=== PATIENT | male | born 1950 | race Caucasian/White ===

== ENCOUNTER 2019-08-15 18:19 | Inpatient (IN) | payer MEDICARE, BC ==
[2019-08-15] MEDS ORDERED: MAGNESIUM SULFATE/D5W 2 GM/200 ML RTUPB IV ONE (18:31)
[2019-08-15] MEDS: MAGNESIUM SULFATE/D5W 1 GM/100 ML RTUPB IV SCH ×2 (18:32→18:52)
[2019-08-15] MEDS ORDERED: IPRATROPIUM/ALBUTEROL 0.5-2.5 MG/3 ML AMPUL NEB ONE (18:37)
[2019-08-15] MEDS ORDERED: MORPHINE SULFATE 10 MG/ML INJ IV ONE (18:41)
[2019-08-15] MEDS ORDERED: ONDANSETRON HCL INJ/PF 4 MG/2 ML SDV IV ONE (18:41)
--- NOTE | 2019-08-15 18:43 | ER Document Report ---
ED General - General Mode of Arrival: Medic Information source: Patient, Emergency Med Personnel, [facility] Records TRAVEL OUTSIDE OF THE [place] IN LAST 30 DAYS: No - HPI Onset: Other Onset/Duration: Gradual, Persistent, Worse Quality of pain: Burning Severity: Moderate Associated symptoms: Chest pain, Leg swelling, Shortness of breath Exacerbated by: Movement, Walking, Coughing Relieved by: Denies Similar symptoms previously: Yes Recently seen / treated by doctor: Yes <ABELARDO PETERS - Last Filed: 08/15/19 23:25> <XAVIER CHAO IV - Last Filed: 08/15/19 23:32> - General Chief Complaint: Shortness Of Breath Stated Complaint: SHORTNESS OF BREATH Primary Care Provider: CHELLY MILES MD [NO LOCAL MD] - Follow up as needed Notes: 69-year-old male with COPD, congestive heart failure, lung cancer with previous right total lobectomy presents via EMS with shortness of breath. Patient r eports that he is chronically short of breath but over the last 3 days it has progressively worsened. He is on home oxygen normally and has required increases per EMS. Per EMS patient was not hypoxic upon their arrival but did have increased work of breathing. Patient did receive breathing treatments and Solu-Medrol prior to arrival. (ABELARDO PETERS) - Related Data Allergies/Adverse Reactions: No Known Allergies Allergy (Unverified 06/22/15 18:06) Past Medical History - General Information source: Patient, Emergency Med Personnel, [facility] Records - Social History Smoking Status: Former Smoker Frequency of alcohol use: None Drug Abuse: None Lives with: Family Family History: Reviewed & Not Pertinent - Past Medical History Cardiac Medical History: Reports: Hx Congestive Heart Failure, Hx Hypertension Pulmonary Medical History: Reports: Hx COPD - Immunizations Hx Pneumococcal Vaccination: 04/09/15 <ABELARDO PETERS - Last Filed: 08/15/19 23:25> Review of Systems <ABELARDO PETERS - Last Filed: 08/15/19 23:25> - Review of Systems Notes: REVIEW OF SYSTEMS: CONSTITUTIONAL : Denies fever, chills, or sweats. Denies recent illness. Denies weight loss, recent hospitalizations. EENT: Denies visual changes, eye pain. Denies sore throat, oral lesions, difficulty swallowing. CARDIOVASCULAR: + chest pain. Denies palpitations. Denies lower extremity edema. RESPIRATORY: + cough. + shortness of breath, wheezing. GASTROINTESTINAL: Denies abdominal pain or distention. Denies nausea, vomiting, or diarrhea. Denies blood in vomitus, stools, or per rectum. Denies black, tarry stools. Denies constipation. GENITOURINARY: Denies difficulty urinating, painful urination, frequency, blood in urine, testicular pain or penile discharge. MUSCULOSKELETAL: Denies back or neck pain or stiffness. Denies joint pain or swelling. SKIN: Denies rash, lesions or sores. HEMATOLOGIC : Denies easy bruising or bleeding. LYMPHATIC: Denies swollen glands. NEUROLOGICAL: Denies confusion or altered mental status. Denies loss of consciousness. Denies dizziness or lightheadedness. Denies headache. Denies weakness or paralysis. Denies problems difficulty with ambulation, slurred speech. Denies sensory loss, numbness, or tingling. Denies seizures. PSYCHIATRIC: Denies anxiety or stress. Denies depression, suicidal ideation, or (ABELRADO PETERS) Physical Exam <ABELARDO PETERS - Last Filed: 08/15/19 23:25> - Vital signs Vitals: Pulse Ox 98 08/15/19 18:20 - Notes Notes: PHYSICAL EXAMINATION: GENERAL: Ill-appearing, moderate distress HEAD: Atraumatic, normocephalic. EYES: Pupils equal round and reactive to light, extraocular movements intact, sclera anicteric, conjunctiva are normal. ENT: Nares patent, oropharynx clear without exudates. Moist mucous membranes. NECK: Normal range of motion, supple without lymphadenopathy LUNGS: Increased work of breathing, accessory muscle use, tachypnea, absent right-sided breath sounds HEART: Regular rate and rhythm without murmurs ABDOMEN: Soft, nontender, nondistended abdomen. No guarding, no rebound. No masses appreciated. Musculoskeletal: Normal range of motion, 1+ pitting edema. No cyanosis. NEUROLOGICAL: Cranial nerves grossly intact. Normal speech, normal gait. Normal sensory, motor exams PSYCH: Normal mood, normal affect. SKIN: Warm, Dry, normal turgor, no rashes or lesions noted. (ABELARDO PETERS) Course - Laboratory Result Diagrams: 08/15/19 18:37 08/15/19 20:33 - Diagnostic Test Radiology reviewed: Image reviewed, Reports reviewed - EKG Interpretation by Me EKG shows normal: Sinus rhythm Rate: Tachycardia <ABELARDO PETERS E - Last Filed: 08/15/19 23:25> - Laboratory Result Diagrams: 08/15/19 18:37 08/15/19 20:33 - Consults dr. kp cassidy, hospitalist Time consulted: 23:25 Consulted provider: will come to ER <XAVIER CHAO IV - Last Filed: 08/15/19 23:32> - Re-evaluation Re-evalutation: Laboratory 08/15/19 08/15/19 08/15/19 18:37 18:37 18:37 WBC 25.4 H RBC 4.14 L Hgb 13.6 Hct 41.7 MCV 101 H MCH 32.8 MCHC 32.6 RDW 15.1 H Plt Count 432 Lymph % (Auto) Not Reportable Josephine % (Auto) Not Reportable Eos % (Auto) Not Reportable Baso % (Auto) Not Reportable Absolute Neuts (auto) Not Reportable Absolute Lymphs (auto) Not Reportable Absolute Monos (auto) Not Reportable Absolute Eos (auto) Not Reportable Absolute Basos (auto) Not Reportable Total Counted 100 Seg Neutrophils % Not Reportable Seg Neuts % (Manual) 88 H Lymphocytes % (Manual) 4 L Monocytes % (Manual) 8 Eosinophils % (Manual) 0 Basophils % (Manual) 0 Abs Neuts (Manual) 22.4 H Abs Lymphs (Manual) 1.0 Abs Monocytes (Manual) 2.0 H Absolute Eos (Manual) 0.0 Abs Basophils (Manual) 0.0 Large Platelets PRESENT Platelet Comment ADEQUATE Anisocytosis SLIGHT Macrocytosis 1+ Carbonic Acid HCO3/H2CO3 Ratio ABG pH ABG pCO2 ABG pO2 ABG HCO3 ABG Total CO2 ABG O2 Saturation ABG Base Excess FiO2 Sodium Cancelled Potassium Cancelled Chloride Cancelled Carbon Dioxide Cancelled Anion Gap Cancelled BUN Cancelled Creatinine Cancelled Est GFR ( Amer) Cancelled Est GFR (Non-Af Amer) Cancelled Est GFR (MDRD) Non-Af Cancelled Glucose Cancelled Lactic Acid Calcium Cancelled Total Bilirubin Cancelled Direct Bilirubin Cancelled Neonat Total Bilirubin Cancelled Neonat Direct Bilirubin Cancelled Neonat Indirect Bili Cancelled AST Cancelled ALT Cancelled Alkaline Phosphatase Cancelled Creatine Kinase Cancelled CK-MB (CK-2) Cancelled Troponin I Cancelled NT-Pro-B Natriuret Pep Cancelled Total Protein Cancelled Albumin Cancelled EGFR Cancelled 08/15/19 08/15/19 08/15/19 18:37 19:18 19:18 WBC RBC Hgb Hct MCV MCH MCHC RDW Plt Count Lymph % (Auto) Josephine % (Auto) Eos % (Auto) Baso % (Auto) Absolute Neuts (auto) Absolute Lymphs (auto) Absolute Monos (auto) Absolute Eos (auto) Absolute Basos (auto) Total Counted Seg Neutrophils % Seg Neuts % (Manual) Lymphocytes % (Manual) Monocytes % (Manual) Eosinophils % (Manual) Basophils % (Manual) Abs Neuts (Manual) Abs Lymphs (Manual) Abs Monocytes (Manual) Absolute Eos (Manual) Abs Basophils (Manual) Large Platelets Platelet Comment Anisocytosis Macrocytosis Carbonic Acid 2.22 H HCO3/H2CO3 Ratio 13:1 ABG pH 7.23 L ABG pCO2 73.6 H* ABG pO2 86.1 ABG HCO3 30.3 H ABG Total CO2 32.5 H ABG O2 Saturation 94.4 ABG Base Excess 0.9 FiO2 50% Sodium Cancelled Potassium Cancelled Chloride Cancelled Carbon Dioxide Cancelled Anion Gap Cancelled BUN Cancelled Creatinine Cancelled Est GFR ( Amer) Cancelled Est GFR (Non-Af Amer) Cancelled Est GFR (MDRD) Non-Af Cancelled Glucose Cancelled Lactic Acid Calcium Cancelled Total Bilirubin Cancelled Direct Bilirubin Cancelled Neonat Total Bilirubin Cancelled Neonat Direct Bilirubin Cancelled Neonat Indirect Bili Cancelled AST Cancelled ALT Cancelled Alkaline Phosphatase Cancelled Creatine Kinase Cancelled CK-MB (CK-2) Cancelled Troponin I Cancelled NT-Pro-B Natriuret Pep Cancelled Total Protein Cancelled Albumin Cancelled EGFR Cancelled 08/15/19 08/15/19 08/15/19 20:00 20:33 20:33 WBC RBC Hgb Hct MCV MCH MCHC RDW Plt Count Lymph % (Auto) Josephine % (Auto) Eos % (Auto) Baso % (Auto) Absolute Neuts (auto) Absolute Lymphs (auto) Absolute Monos (auto) Absolute Eos (auto) Absolute Basos (auto) Total Counted Seg Neutrophils % Seg Neuts % (Manual) Lymphocytes % (Manual) Monocytes % (Manual) Eosinophils % (Manual) Basophils % (Manual) Abs Neuts (Manual) Abs Lymphs (Manual) Abs Monocytes (Manual) Absolute Eos (Manual) Abs Basophils (Manual) Large Platelets Platelet Comment Anisocytosis Macrocytosis Carbonic Acid HCO3/H2CO3 Ratio ABG pH ABG pCO2 ABG pO2 ABG HCO3 ABG Total CO2 ABG O2 Saturation ABG Base Excess FiO2 Sodium 137.0 Potassium 5.0 Chloride 93 L Carbon Dioxide 30 Anion Gap 14 BUN 15 Creatinine 0.56 Est GFR ( Amer) > 60 Est GFR (Non-Af Amer) Est GFR (MDRD) Non-Af > 60 Glucose 165 H Lactic Acid 1.4 Calcium 8.8 Total Bilirubin 0.6 Direct Bilirubin 0.6 H Neonat Total Bilirubin Not Reportable Neonat Direct Bilirubin Not Reportable Neonat Indirect Bili Not Reportable AST 23 ALT 15 Alkaline Phosphatase 129 H Creatine Kinase 44 L CK-MB (CK-2) 3.54 Troponin I < 0.012 NT-Pro-B Natriuret Pep 1010 H Total Protein 7.2 Albumin 4.2 EGFR 08/15/19 22:48 WBC RBC Hgb Hct MCV MCH MCHC RDW Plt Count Lymph % (Auto) Josephine % (Auto) Eos % (Auto) Baso % (Auto) Absolute Neuts (auto) Absolute Lymphs (auto) Absolute Monos (auto) Absolute Eos (auto) Absolute Basos (auto) Total Counted Seg Neutrophils % Seg Neuts % (Manual) Lymphocytes % (Manual) Monocytes % (Manual) Eosinophils % (Manual) Basophils % (Manual) Abs Neuts (Manual) Abs Lymphs (Manual) Abs Monocytes (Manual) Absolute Eos (Manual) Abs Basophils (Manual) Large Platelets Platelet Comment Anisocytosis Macrocytosis Carbonic Acid 3.82 H HCO3/H2CO3 Ratio 8:1 ABG pH 7.03 L* ABG pCO2 126.8 H* ABG pO2 93.0 ABG HCO3 32.8 H ABG Total CO2 36.7 H ABG O2 Saturation 91.9 L ABG Base Excess -1.6 FiO2 50% Sodium Potassium Chloride Carbon Dioxide Anion Gap BUN Creatinine Est GFR ( Amer) Est GFR (Non-Af Amer) Est GFR (MDRD) Non-Af Glucose Lactic Acid Calcium Total Bilirubin Direct Bilirubin Neonat Total Bilirubin Neonat Direct Bilirubin Neonat Indirect Bili AST ALT Alkaline Phosphatase Creatine Kinase CK-MB (CK-2) Troponin I NT-Pro-B Natriuret Pep Total Protein Albumin EGFR Chest X-Ray 08/15/19 18:30 IMPRESSION: Increased left basilar airspace -interstitial opacities. Chest/Abdomen CTA 08/15/19 18:59 IMPRESSION: 1. No evidence of pulmonary embolus. 2. Findings consistent with a mild left basilar pneumonia, consider aspiration. There is also mild evidence of a likely infectious bronchiolitis or possibly changes of aspiration in the left lung as well. 3. Borderline sized prevascular lymph node that could be reactive but metastatic disease is not excluded. Correlation with any old imaging or short-term follow-up would be useful. Temp Pulse Resp BP Pulse Ox 97.7 F 14 119/81 92 08/15/19 21:30 08/15/19 23:00 08/15/19 22:31 08/15/19 23:00 08/15/19 18:46 Patient has informed us that he does not want to be resuscitated or intubated. 08/15/19 19:16 ED Course History: 69-year-old male with COPD, right lobectomy, history of lung cancer presents with shortness of breath for 3 days Patient evaluated. Vital signs were reviewed. Patient is tachypneic, tachycardic. Previous medical records and nursing notes reviewed. Patient in moderate distress Exam Findings: Increased work of breathing, accessory muscle use. Lab Findings: ABG does show CO2 retention EKG: Significant artifact due to patient being in extremis. EKG does show sinus tachycardia at a rate of 136. Patient Interventions/Monitor: DuoNeb's, Solu-Medrol, magnesium, morphine, Zofran, BiPAP Revaluation: Resting more comfortably, awaiting labs, CTA Disposition:Patient signed out to Dr Chao with CTA and labs pending. Patient will need admission due to pneumonia,respiratory distress, CO2 retention.Because of cancer history CTA obtained to assure no PE present. 08/15/19 23:22 (ABELARDO PETERS) 08/15/19 23:30 Patient is becoming more somnolent. Patient is a DNR, DNI. Repeat ABG shows that the patient is becoming more hypercarbic. This MD notified the nurse to try to get in contact with the patient's relatives and informed them that the patient is seriously ill. (XAVIER CHAO IV) - Vital Signs Vital signs: Temp Pulse Resp BP Pulse Ox 97.7 F 14 119/72 91 L 08/15/19 21:30 08/15/19 23:20 08/15/19 23:01 08/15/19 23:20 - Laboratory Laboratory results interpreted by me: 08/15/19 08/15/19 08/15/19 18:37 18:37 20:33 WBC 25.4 H RBC 4.14 L MCV 101 H RDW 15.1 H Seg Neuts % (Manual) 88 H Lymphocytes % (Manual) 4 L Abs Neuts (Manual) 22.4 H Abs Monocytes (Manual) 2.0 H Carbonic Acid 2.22 H ABG pH 7.23 L ABG pCO2 73.6 H* ABG HCO3 30.3 H ABG Total CO2 32.5 H ABG O2 Saturation Chloride 93 L Glucose 165 H Direct Bilirubin 0.6 H Alkaline Phosphatase 129 H Creatine Kinase 44 L NT-Pro-B Natriuret Pep 08/15/19 08/15/19 20:33 22:48 WBC RBC MCV RDW Seg Neuts % (Manual) Lymphocytes % (Manual) Abs Neuts (Manual) Abs Monocytes (Manual) Carbonic Acid 3.82 H ABG pH 7.03 L* ABG pCO2 126.8 H* ABG HCO3 32.8 H ABG Total CO2 36.7 H ABG O2 Saturation 91.9 L Chloride Glucose Direct Bilirubin Alkaline Phosphatase Creatine Kinase NT-Pro-B Natriuret Pep 1010 H - Consults dr. kp cassidy, hospitalist Reason for consultation: 08/15/19 23:31 pneumonia, respiratory distress, hypercarbia (XAVIER CHAO IV) Critical Care Note - Critical Care Note Total time excluding time spent on procedures (mins): 50 - minutes of critical care time spent in direct contact evaluating and reevaluating the patient, treating symptoms, reviewing labs and studies and speaking with family and consultants excluding any procedures <ABELARDO PETERS - Last Filed: 08/15/19 23:25> Discharge <ABELARDO PETERS - Last Filed: 08/15/19 23:25> - Discharge Admitting Provider: Carlos (Hospitalist) Unit Admitted: Medical Floor <XAVIER CHAO IV - Last Filed: 08/15/19 23:32> - Discharge Clinical Impression: Respiratory distress Leukocytosis Qualifiers: Leukocytosis type: unspecified Qualified Code(s): D72.829 - Elevated white blood cell count, unspecified Pneumonia Qualifiers: Pneumonia type: due to unspecified organism Laterality: left Lung location: unspecified part of lung Qualified Code(s): J18.9 - Pneumonia, unspecified [facility] Condition: Critical Disposition: ADMITTED INPATIENT Referrals: CHELLY MILES MD [NO LOCAL MD] - Follow up as needed
[2019-08-15 18:53] LABS: HEMATOCRIT 41.7 % (37.9-51.0); HEMOGLOBIN 13.6 g/dL (13.5-17.0); MEAN CORPUSCULAR HEMOGLOBIN 32.8 pg (27.0-33.4); MEAN CORPUSCULAR HGB CONC 32.6 g/dL (32.0-36.0); MEAN CORPUSCULAR VOLUME 101 fl (80-97); PLATELET COUNT 432 10^3/uL (150-450); RED BLOOD COUNT 4.14 10^6/uL (4.35-5.55); RED CELL DISTRIBUTION WIDTH 15.1 % (11.5-14.0); WHITE BLOOD COUNT 25.4 10^3/uL (4.0-10.5)
[2019-08-15 19:02] LABS: ARTERIAL BLOOD BASE EXCESS 0.9 mmol/L; ARTERIAL BLOOD H2CO3 2.22 mmol/L (1.05-1.35); ARTERIAL BLOOD HCO3 30.3 mmol/L (20-24); ARTERIAL BLOOD O2 SATURATION 94.4 % (94-98); ARTERIAL BLOOD PH 7.23 (7.35-7.45); ARTERIAL BLOOD PO2 86.1 mmHg (80-100); ARTERIAL BLOOD TOTAL CO2 32.5 mmol/L (23-27)
[2019-08-15 19:05] LABS: ARTERIAL BLOOD FIO2 50%; ARTERIAL BLOOD PCO2 73.6 mmHg (35-45)
--- NOTE | 2019-08-15 19:07 | RADIOLOGY REPORT (SQ) ---
EXAM DESCRIPTION: CHEST SINGLE VIEW COMPLETED DATE/TIME: 08/15/2019 6:46 pm REASON FOR STUDY: sob COMPARISON: 06/22/2015 TECHNIQUE: Single frontal radiographic view of the chest acquired. NUMBER OF VIEWS: One view. LIMITATIONS: None. FINDINGS: LUNGS AND PLEURA: No pneumothorax. Similar opacification -postsurgical changes in the rig ht hemithorax. Increased left basilar airspace -interstitial opacities. No significant Pleural effu edgar. MEDIASTINUM AND HILAR STRUCTURES: Stable. HEART AND VASCULAR STRUCTURES: Stable. BONES: No acute findings. HARDWARE: Surgical clips in the right hilus-mediastinum. OTHER: No other significant finding. IMPRESSION: Increased left basilar airspace -interstitial opacities. TECHNICAL DOCUMENTATION: JOB ID: [id number] 2010 [employer]- All Rights Reserved Reading location - IP/workstation name: [email or web address]
[2019-08-15 19:16] LABS: BASOPHILS % (MANUAL) 0 % (0-2); EOSINOPHILS % (MANUAL) 0 % (0-6); LYMPHOCYTES % (MANUAL) 4 % (13-45); MONOCYTES % (MANUAL) 8 % (3-13); SEGMENTED NEUTROPHILS % (MAN) 88 % (42-78); TOTAL CELLS COUNTED 100
[2019-08-15 19:18] LABS: ANISOCYTOSIS SLIGHT; PLATELET COMMENT ADEQUATE; PLATELET LARGE PRESENT
[2019-08-15] MEDS ORDERED: CEFTRIAXONE 1 GM/D5W RTU 1 GM/50 ML RTUPB IV ONE (19:38)
[2019-08-15] MEDS ORDERED: DOXYCYCLINE HYCLATE 100 MG TABLET PO ONE (19:43)
[2019-08-15] MEDS ORDERED: NORMAL SALINE 500 ML IV ONE (19:55)
[2019-08-15 21:11] LABS: CREATINE KINASE MB 3.54 ng/mL (<4.55); NT PRO BNP 1010 pg/mL (<125)
[2019-08-15 21:13] LABS: TROPONIN I < 0.012 ng/mL
[2019-08-15 21:14] LABS: ALBUMIN 4.2 g/dL (3.5-5.0); ALKALINE PHOSPHATASE 129 U/L (38-126); ANION GAP 14 (5-19); ASPARTATE AMINO TRANSFERASE 23 U/L (17-59); BILIRUBIN,DIRECT 0.6 mg/dL (0.0-0.4); BILIRUBIN,TOTAL 0.6 mg/dL (0.2-1.3); BLOOD UREA NITROGEN 15 mg/dL (7-20); CALCIUM 8.8 mg/dL (8.4-10.2); CARBON DIOXIDE 30 mmol/L (22-30); CHLORIDE 93 mmol/L (98-107); CREATINE KINASE 44 U/L (55-170); GLUCOSE 165 mg/dL (75-110); TOTAL PROTEIN 7.2 g/dL (6.3-8.2)
--- NOTE | 2019-08-15 21:31 | EKG REPORT ---
SEVERITY:- ABNORMAL ECG - SINUS TACHYCARDIA ATRIAL PREMATURE COMPLEXES LEFT VENTRICULAR HYPERTROPHY ST DEPRESSION, CONSIDER ISCHEMIA, ANT-LAT LDS : Confirmed by: Parag Li MD 15-Aug-2019 21:30:48
--- NOTE | 2019-08-15 22:08 | RADIOLOGY REPORT (SQ) ---
CT angiogram chest with contrast on 08/15/2019 at 9:34 PM CLINICAL INDICATION: Shortness of breath, history of cancer TECHNIQUE: Multiple axial images are obtained throughout the chest following the administration of IV contrast. Computer generated 3D reconstructions/MIPS were performed. This exam was performed according to our departmental dose-optimization program, which includes automated exposure control, adjustment of the mA and/or kV according to patient size and/or use of iterative reconstruction technique. Total DLP is 566.87 mGy*cm. COMPARISON: None FINDINGS: The patient is status post a right pneumonectomy. There is expected shift of the heart and mediastinum to the right. There is expected fluid filling the right hemithorax. There is no thoracic aortic aneurysm or dissection. There is diverticulosis in the upper abdomen. There is elevation of the right hemidiaphragm. Visualized upper abdomen is otherwise unremarkable. There is no left pleural effusion or pericardial effusion. There are no filling defects within the pulmonary arteries to suggest pulmonary embolus. Breathing motion limits some of the examination. There is left basilar airspace opacity consistent with pneumonia, consider aspiration. There are also patchy tree-in-bud nodular opacities in the left lung that may be related to an infectious bronchiolitis and/or aspiration. There is borderline in size left prevascular lymph node on axial image 50 measuring 1.4 x 1.3 cm. This could be reactive but metastatic adenopathy is not excluded. Correlation with any old imaging or short-term follow-up would be useful. No other thoracic adenopathy is noted. No acute bony abnormality is noted. IMPRESSION: 1. No evidence of pulmonary embolus. 2. Findings consistent with a mild left basilar pneumonia, consider aspiration. There is also mild evidence of a likely infectious bronchiolitis or possibly changes of aspiration in the left lung as well. 3. Borderline sized prevascular lymph node that could be reactive but metastatic disease is not excluded. Correlation with any old imaging or short-term follow-up would be useful.
[2019-08-15 22:56] LABS: ARTERIAL BLOOD BASE EXCESS -1.6 mmol/L; ARTERIAL BLOOD H2CO3 3.82 mmol/L (1.05-1.35); ARTERIAL BLOOD HCO3 32.8 mmol/L (20-24); ARTERIAL BLOOD O2 SATURATION 91.9 % (94-98); ARTERIAL BLOOD TOTAL CO2 36.7 mmol/L (23-27)
[2019-08-15 22:58] LABS: ARTERIAL BLOOD FIO2 50%
[2019-08-15 23:04] LABS: ARTERIAL BLOOD PCO2 126.8 mmHg (35-45); ARTERIAL BLOOD PH 7.03 (7.35-7.45)
--- NOTE | 2019-08-16 00:27 | PDOC H&P ---
History of Present Illness Admission Date/PCP: 08/15/19 23:38 Patient complains of: Difficulty breathing History of Present Illness: ARMIDA العلي JR is a 69 year old male with a history of lung cancer status post right pneumonectomy. He also has a history of COPD and congestive heart failure. He had called rescue for increasing shortness of breath. Upon arrival the patient was on his baseline oxygen exhibiting increased work of breathing. He did get a nebulizer treatment and IV steroids onsite. He was transferred to the emergency department. He was placed on BiPAP. Chest x-ray and CT scan revealed a left lower lobe pneumonia as well as the fluid-filled right side of the chest status post pneumonectomy. He had an elevated white blood cell count of 25,000. Chemistries were relatively unremarkable. Glucose was 165. The patient was referred to the hospital service for pneumonia. He does have a history of lung cancer and is currently DNR. Past Medical History Cardiac Medical History: Reports: Congestive Heart Failure, Hypertension Pulmonary Medical History: Reports: Chronic Obstructive Pulmonary Disease (COPD) Past Surgical History Past Surgical History: Reports: Other - Right pneumonectomy Social History Information Source: [facility] Records Lives with: Family Smoking Status: Former Smoker Electronic Cigarette use?: No Frequency of Alcohol Use: None Hx Recreational Drug Use: No Drugs: None Hx Prescription Drug Abuse: No - Advance Directive Resuscitation Status: Do Not Resuscitate Family History Family History: Reviewed & Not Pertinent Parental Family History Reviewed: No - Unable to obtain from the patient due to tachypnea on the BiPAP Children Family History Reviewed: No Sibling(s) Family History Reviewed.: No Medication/Allergy Home Medications: Budesonide/Formoterol Fumarate [Symbicort HFA 160-4.5 mcg Inhaler 6 gm] 2 puff IH Q12 06/22/15 Ipratropium/Albuterol Sulfate [Combivent Respimat 4 gm Mdi] 1 puff IH Q4 PRN 06/22/15 Albuterol Sulfate [Albuterol Sulfate 2.5mg/3 mL] 2.5 mg IH Q4HP PRN #30 ml Amoxicillin/Potassium Clav [Augmentin 875-125 Tablet] 1 each PO Q12 #20 tablet 06/26/15 Prednisone 20 mg PO ASDIR PRN #8 tablet 06/26/15 Tiotropium [place] [Spiriva Handihaler 18 mcg/dose (30 Dose)] 1 cap IH DAILY #30 capsule 06/26/15 Allergies/Adverse Reactions: No Known Allergies Allergy (Unverified 06/22/15 18:06) Review of Systems ROS unobtainable: Due to mental status - Patient with confusion and PCO2 126 Physical Exam Vital Signs: Temp Pulse Resp BP Pulse Ox 97.7 F 12 93/73 L 92 08/15/19 21:30 08/15/19 23:40 08/15/19 23:31 08/15/19 23:40 Intake & Output 08/14/19 08/15/19 08/16/19 05:59 06:59 06:59 Intake Total 750 Balance 750 Weight 68.039 kg General appearance: PRESENT: mild distress, thin, other - Actually woke up and was trying to get out of bed. ABSENT: cooperative Head exam: PRESENT: atraumatic, normocephalic Eye exam: PRESENT: conjunctiva pale. ABSENT: scleral icterus Ear exam: PRESENT: normal external ear exam. ABSENT: bleeding, drainage Mouth exam: PRESENT: other - BiPAP mask in place Neck exam: ABSENT: carotid bruit, JVD, lymphadenopathy Respiratory exam: PRESENT: prolonged expiratory phas, rhonchi - Very large on the right, symmetrical, tachypnea. ABSENT: rales, wheezes Cardiovascular exam: PRESENT: RRR, +S1, +S2. ABSENT: systolic murmur GI/Abdominal exam: PRESENT: diminished bowel sounds, soft. ABSENT: distended, guarding, tenderness Rectal exam: PRESENT: deferred Gentrourinary exam: ABSENT: indwelling catheter Extremities exam: PRESENT: full ROM. ABSENT: pedal edema Musculoskeletal exam: PRESENT: normal inspection, other - Decreased muscle mass Neurological exam: PRESENT: alert, awake, oriented to person Psychiatric exam: PRESENT: agitated, unusual affect Focused psych exam: PRESENT: restlessness Skin exam: PRESENT: dry - Skin in fact is very dry, warm. ABSENT: rash Results Laboratory Results: 08/15/19 18:37 08/15/19 20:33 08/15/19 08/15/19 08/15/19 18:37 18:37 18:37 WBC 25.4 H RBC 4.14 L Hgb 13.6 Hct 41.7 MCV 101 H MCH 32.8 MCHC 32.6 RDW 15.1 H Plt Count 432 Seg Neutrophils % Not Reportable Carbonic Acid 2.22 H HCO3/H2CO3 Ratio 13:1 ABG pH 7.23 L ABG pCO2 73.6 H* ABG pO2 86.1 ABG HCO3 30.3 H ABG O2 Saturation 94.4 ABG Base Excess 0.9 FiO2 50% Sodium Cancelled Potassium Cancelled Chloride Cancelled Carbon Dioxide Cancelled Anion Gap Cancelled BUN Cancelled Creatinine Cancelled Est GFR ( Amer) Cancelled Est GFR (Non-Af Amer) Cancelled Glucose Cancelled Lactic Acid Calcium Cancelled Total Bilirubin Cancelled AST Cancelled Alkaline Phosphatase Cancelled Total Protein Cancelled Albumin Cancelled 08/15/19 08/15/19 08/15/19 19:18 20:00 20:33 WBC RBC Hgb Hct MCV MCH MCHC RDW Plt Count Seg Neutrophils % Carbonic Acid HCO3/H2CO3 Ratio ABG pH ABG pCO2 ABG pO2 ABG HCO3 ABG O2 Saturation ABG Base Excess FiO2 Sodium Cancelled 137.0 Potassium Cancelled 5.0 Chloride Cancelled 93 L Carbon Dioxide Cancelled 30 Anion Gap Cancelled 14 BUN Cancelled 15 Creatinine Cancelled 0.56 Est GFR ( Amer) Cancelled > 60 Est GFR (Non-Af Amer) Cancelled Glucose Cancelled 165 H Lactic Acid 1.4 Calcium Cancelled 8.8 Total Bilirubin Cancelled 0.6 AST Cancelled 23 Alkaline Phosphatase Cancelled 129 H Total Protein Cancelled 7.2 Albumin Cancelled 4.2 08/15/19 22:48 WBC RBC Hgb Hct MCV MCH MCHC RDW Plt Count Seg Neutrophils % Carbonic Acid 3.82 H HCO3/H2CO3 Ratio 8:1 ABG pH 7.03 L* ABG pCO2 126.8 H* ABG pO2 93.0 ABG HCO3 32.8 H ABG O2 Saturation 91.9 L ABG Base Excess -1.6 FiO2 50% Sodium Potassium Chloride Carbon Dioxide Anion Gap BUN Creatinine Est GFR ( Amer) Est GFR (Non-Af Amer) Glucose Lactic Acid Calcium Total Bilirubin AST Alkaline Phosphatase Total Protein Albumin 08/15/19 08/15/19 08/15/19 18:37 18:37 19:18 Creatine Kinase Cancelled CK-MB (CK-2) Cancelled Cancelled Troponin I Cancelled Cancelled NT-Pro-B Natriuret Pep Cancelled Cancelled 0308/15/19 08/15/19 19:18 20:33 20:33 Creatine Kinase Cancelled 44 L CK-MB (CK-2) 3.54 Troponin I < 0.012 NT-Pro-B Natriuret Pep 1010 H Impressions: Chest X-Ray 08/15/19 18:30 IMPRESSION: Increased left basilar airspace -interstitial opacities. Chest/Abdomen CTA 08/15/19 18:59 IMPRESSION: 1. No evidence of pulmonary embolus. 2. Findings consistent with a mild left basilar pneumonia, consider aspiration. There is also mild evidence of a likely infectious bronchiolitis or possibly changes of aspiration in the left lung as well. 3. Borderline sized prevascular lymph node that could be reactive but metastatic disease is not excluded. Correlation with any old imaging or short-term follow-up would be useful. Assessment and Plan - Diagnosis (1) Pneumonia Qualifiers: Pneumonia type: due to unspecified organism Laterality: left Lung location: unspecified part of lung Qualified Code(s): J18.9 - Pneumonia, unspecified organism Is this a current diagnosis for this admission?: Yes Plan: 08/16/2019 The patient has a high white blood cell count and imaging suggestive of left lower lobe pneumonia. The patient was placed on dual antibiotic therapy. This will cover most of the common pathogens including Streptococcus. It will also cover some atypical bacteria. (2) Leukocytosis Qualifiers: Leukocytosis type: unspecified Qualified Code(s): D72.829 - Elevated white blood cell count, unspecified Is this a current diagnosis for this admission?: Yes Plan: 08/16/2019 White blood cell count elevated due to pneumonia. We will continue to monitor the white blood cell count. I expect it will improve with antibiotic therapy. (3) Acute on chronic respiratory failure with hypoxia and hypercapnia Is this a current diagnosis for this admission?: Yes Plan: 08/16/2019 The patient requires BiPAP because of the severe hypercapnia. Nursing reports that he is beginning to awaken and communicates now that he has been on BiPAP. We will continue the BiPAP and eventually wean him from BiPAP. He is on oxygen at home and so we will try and taper to his baseline oxygen requirements (4) Metabolic encephalopathy Is this a current diagnosis for this admission?: Yes Plan: 08/16/2019 Secondary to the hypercapnia and infection. (5) Hyperglycemia Is this a current diagnosis for this admission?: Yes Plan: 08/16/2019 Possibly related to the intravenous Solu-Medrol given in the field. Continue to monitor serum chemistries. If the glucose remains elevated consider Accu-Cheks and sliding scale insulin coverage. (6) H/O pneumonectomy Is this a current diagnosis for this admission?: Yes Plan: 08/16/2019 The patient did have lung cancer. He had the pneumonectomy. He only has 1 working long and he has a left lower lobe pneumonia. CT scan of the chest showed possible adenopathy consistent with metastatic disease. (7) Sepsis Qualifiers: Sepsis type: sepsis due to unspecified organism Severe sepsis acute organ dysfunction type: acute respiratory failure Acute respiratory failure type: with hypercapnia Severe sepsis shock status: without septic shock Is this a current diagnosis for this admission?: Yes Plan: 08/16/2019 The patient does meet sepsis criteria due to the hypoxemia with increased work of breathing as well as the encephalopathy. He was never hypotensive and is not thrombocytopenic. No acute kidney injury or acute liver injury are present. The sepsis was due to pneumonia that was present on admission. The patient experienced respiratory failure because of the pneumonia. He was encephalopathic because of the hypercapnia. This should resolve with antibiotics, nebulizer treatments and supportive care - Time Time Spent with patient: 35 or more minutes Medications reviewed and adjusted accordingly: Yes Anticipated discharge: Other - Consider hospice. Palliative care order placed. 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
[2019-08-16] MEDS ORDERED: IPRATROPIUM/ALBUTEROL 0.5-2.5 MG/3 ML AMPUL NEB PRN (00:30)
[2019-08-16] MEDS ORDERED: ACETAMINOPHEN 325 MG TABLET PO PRN (00:30)
[2019-08-16] MEDS ORDERED: MORPHINE SULFATE 10 MG/ML INJ IV PRN (00:39)
[2019-08-16] MEDS: IPRATROPIUM/ALBUTEROL 0.5-2.5 MG/3 ML AMPUL NEB SCH ×4 (01:50→20:53)
[2019-08-16] MEDS: LORAZEPAM INJ 2 MG/1 ML VIAL IV PRN ×3 (05:51→23:35)
[2019-08-16] MEDS: HEPARIN SOD (PORCINE) 5,000 UNIT/ML 1 ML VIAL SUBCUT SCH ×3 (05:55→21:32)
[2019-08-16] MEDS: NORMAL SALINE 1000 ML 1,000 ML IV PRN ×2 (05:56→17:35)
[2019-08-16 06:41] LABS: HEMATOCRIT 36.4 % (37.9-51.0); HEMOGLOBIN 11.8 g/dL (13.5-17.0); MEAN CORPUSCULAR HEMOGLOBIN 32.9 pg (27.0-33.4); MEAN CORPUSCULAR HGB CONC 32.6 g/dL (32.0-36.0); MEAN CORPUSCULAR VOLUME 101 fl (80-97); PLATELET COUNT 379 10^3/uL (150-450); RED BLOOD COUNT 3.59 10^6/uL (4.35-5.55); RED CELL DISTRIBUTION WIDTH 15.3 % (11.5-14.0); WHITE BLOOD COUNT 20.3 10^3/uL (4.0-10.5)
[2019-08-16 07:07] LABS: ANION GAP 10 (5-19); BLOOD UREA NITROGEN 25 mg/dL (7-20); CALCIUM 8.8 mg/dL (8.4-10.2); CARBON DIOXIDE 32 mmol/L (22-30); CHLORIDE 96 mmol/L (98-107); GLUCOSE 142 mg/dL (75-110); POTASSIUM 5.5 mmol/L (3.6-5.0)
[2019-08-16 07:13] LABS: ARTERIAL BLOOD BASE EXCESS 0.6 mmol/L; ARTERIAL BLOOD H2CO3 3.98 mmol/L (1.05-1.35); ARTERIAL BLOOD HCO3 34.7 mmol/L (20-24); ARTERIAL BLOOD PO2 232.3 mmHg (80-100); ARTERIAL BLOOD TOTAL CO2 38.8 mmol/L (23-27)
[2019-08-16 07:31] LABS: ARTERIAL BLOOD PH 7.04 (7.35-7.45)
[2019-08-16 07:32] LABS: ARTERIAL BLOOD FIO2 50%; ARTERIAL BLOOD PCO2 132.3 mmHg (35-45)
[2019-08-16 07:54] LABS: ABSOLUTE LYMPHOCYTES# (MANUAL) 0.4 10^3/uL (0.5-4.7); ABSOLUTE MONOCYTES # (MANUAL) 0.4 10^3/uL (0.1-1.4); BAND NEUTROPHILS % (MANUAL) 1 % (3-5); BASOPHILS % (MANUAL) 1 % (0-2); EOSINOPHILS % (MANUAL) 0 % (0-6); LYMPHOCYTES % (MANUAL) 1 % (13-45); MONOCYTES % (MANUAL) 2 % (3-13); SEGMENTED NEUTROPHILS % (MAN) 94 % (42-78); TOTAL CELLS COUNTED 100
[2019-08-16 07:56] LABS: ANISOCYTOSIS SLIGHT; TOXIC GRANULATION SLIGHT
[2019-08-16] MEDS: BUDESONIDE NEB 0.5 MG/2 ML AMPUL NEB SCH ×2 (07:56→20:53)
[2019-08-16 07:57] LABS: PLATELET COMMENT ADEQUATE
[2019-08-16] MEDS: DOXYCYCLINE HYCLATE 100 MG in DEXTROSE 5%-WATER 250 ML IV SCH ×2 (09:56→23:06)
[2019-08-16] MEDS: FAMOTIDINE INJ/PF 20 MG/2 ML SDV IV SCH ×2 (09:56→23:05)
[2019-08-16] MEDS: MINERAL OIL/PETROLATUM,WHITE CREAM 114 GM TP SCH ×2 (09:59→17:18)
[2019-08-16] MEDS: GUAIFENESIN 600 MG TABLET.SA PO SCH ×2 (10:06→21:37)
[2019-08-16] MEDS ORDERED: INFLUENZA QUAD (6MOS+) 2019-20 VAC 0.5 ML SYR IM ONE (12:00)
[2019-08-16] MEDS ORDERED: CEFTRIAXONE 1 GM/D5W RTU 1 GM/50 ML RTUPB IV SCH (18:00)
--- NOTE | 2019-08-16 18:44 | PDOC PROGRESS REPORT ---
Subjective Progress Note for:: 08/16/19 Subjective:: Patient was admitted last night has been on BiPAP. A little like his CO2 was actually getting worse on BiPAP. Fortunately, however, as the day went on he began to get a little bit more responsive. At last report he was sitting up in bed which was a dramatic improvement over how he was doing this morning. When I saw him earlier he can at least open his eyes and nod his head a little bit, which was an improvement over last night. Reason For Visit: PNEUMONIA,LUNG CANCER Physical Exam Vital Signs: Temp Pulse Resp BP Pulse Ox 97.6 F 106 H 18 103/54 L 99 08/16/19 08:00 08/16/19 08:00 08/16/19 12:50 08/16/19 08:00 08/16/19 12:50 Pulse Oximeter Continuous Start: 08/16/19 00:31 Freq: RTQ4 Status: Active Protocol: Document 08/16/19 12:50 NSM (Rec: 08/16/19 13:15 NSM [id number]) Additional RT Notes Other Grazyna Luis RCP student Pulse Oximetry Assessment Oxygen Saturation (92-100) 99 Oxygen Delivery Method Bi-pap Fraction of Inspired Oxygen (FIO2) 50 Equipment Usage Equipment in Use Continuous SpO2 Machine # [id number] Intake & Output 08/15/19 08/16/19 08/17/19 06:59 06:59 06:59 Intake Total 750 1300 Balance 750 1300 Weight 55.8 kg 55.8 kg General appearance: PRESENT: disheveled, other - Moderate distress Respiratory exam: PRESENT: rhonchi, symmetrical, unlabored. ABSENT: accessory muscle use, chest wall tenderness, crackles, prolonged expiratory phas, retraction, tachypnea, wheezes Cardiovascular exam: PRESENT: RRR, +S1, +S2 Pulses: PRESENT: normal carotid pulses Vascular exam: PRESENT: normal capillary refill GI/Abdominal exam: PRESENT: hypoactive bowel sounds, soft. ABSENT: distended, guarding, rebound, tenderness Extremities exam: ABSENT: clubbing, pedal edema Musculoskeletal exam: PRESENT: normal inspection. ABSENT: deformity Neurological exam: PRESENT: altered - Arousable to verbal command, oriented to person Psychiatric exam: PRESENT: flat affect Skin exam: PRESENT: dry, warm Results Laboratory Results: 08/16/19 06:12 08/16/19 06:12 08/15/19 08/15/19 08/15/19 18:37 18:37 18:37 WBC 25.4 H RBC 4.14 L Hgb 13.6 Hct 41.7 MCV 101 H MCH 32.8 MCHC 32.6 RDW 15.1 H Plt Count 432 Seg Neutrophils % Not Reportable Carbonic Acid 2.22 H HCO3/H2CO3 Ratio 13:1 ABG pH 7.23 L ABG pCO2 73.6 H* ABG pO2 86.1 ABG HCO3 30.3 H ABG O2 Saturation 94.4 ABG Base Excess 0.9 FiO2 50% Sodium Cancelled Potassium Cancelled Chloride Cancelled Carbon Dioxide Cancelled Anion Gap Cancelled BUN Cancelled Creatinine Cancelled Est GFR ( Amer) Cancelled Est GFR (Non-Af Amer) Cancelled Glucose Cancelled Lactic Acid Calcium Cancelled Magnesium Total Bilirubin Cancelled AST Cancelled Alkaline Phosphatase Cancelled Total Protein Cancelled Albumin Cancelled 08/15/19 08/15/19 08/15/19 19:18 20:00 20:33 WBC RBC Hgb Hct MCV MCH MCHC RDW Plt Count Seg Neutrophils % Carbonic Acid HCO3/H2CO3 Ratio ABG pH ABG pCO2 ABG pO2 ABG HCO3 ABG O2 Saturation ABG Base Excess FiO2 Sodium Cancelled 137.0 Potassium Cancelled 5.0 Chloride Cancelled 93 L Carbon Dioxide Cancelled 30 Anion Gap Cancelled 14 BUN Cancelled 15 Creatinine Cancelled 0.56 Est GFR ( Amer) Cancelled > 60 Est GFR (Non-Af Amer) Cancelled Glucose Cancelled 165 H Lactic Acid 1.4 Calcium Cancelled 8.8 Magnesium Total Bilirubin Cancelled 0.6 AST Cancelled 23 Alkaline Phosphatase Cancelled 129 H Total Protein Cancelled 7.2 Albumin Cancelled 4.2 08/15/19 08/16/19 08/16/19 22:48 05:50 06:12 WBC 20.3 H RBC 3.59 L Hgb 11.8 L Hct 36.4 L MCV 101 H MCH 32.9 MCHC 32.6 RDW 15.3 H Plt Count 379 Seg Neutrophils % Not Reportable Carbonic Acid 3.82 H 3.98 H HCO3/H2CO3 Ratio 8:1 8:1 ABG pH 7.03 L* 7.04 L* ABG pCO2 126.8 H* 132.3 H* ABG pO2 93.0 232.3 H ABG HCO3 32.8 H 34.7 H ABG O2 Saturation 91.9 L 99.0 H ABG Base Excess -1.6 0.6 FiO2 50% 50% Sodium Potassium Chloride Carbon Dioxide Anion Gap BUN Creatinine Est GFR ( Amer) Est GFR (Non-Af Amer) Glucose Lactic Acid Calcium Magnesium Total Bilirubin AST Alkaline Phosphatase Total Protein Albumin 08/16/19 06:12 WBC RBC Hgb Hct MCV MCH MCHC RDW Plt Count Seg Neutrophils % Carbonic Acid HCO3/H2CO3 Ratio ABG pH ABG pCO2 ABG pO2 ABG HCO3 ABG O2 Saturation ABG Base Excess FiO2 Sodium 138.4 Potassium 5.5 H Chloride 96 L Carbon Dioxide 32 H Anion Gap 10 BUN 25 H Creatinine 0.87 Est GFR ( Amer) > 60 Est GFR (Non-Af Amer) Glucose 142 H Lactic Acid Calcium 8.8 Magnesium 3.2 H Total Bilirubin AST Alkaline Phosphatase Total Protein Albumin 08/15/19 08/15/19 08/15/19 18:37 18:37 19:18 Creatine Kinase Cancelled CK-MB (CK-2) Cancelled Cancelled Troponin I Cancelled Cancelled NT-Pro-B Natriuret Pep Cancelled Cancelled 08/15/19 08/15/19 08/15/19 19:18 20:33 20:33 Creatine Kinase Cancelled 44 L CK-MB (CK-2) 3.54 Troponin I < 0.012 NT-Pro-B Natriuret Pep 1010 H Impressions: Chest X-Ray 08/15/19 18:30 IMPRESSION: Increased left basilar airspace -interstitial opacities. Chest/Abdomen CTA 08/15/19 18:59 IMPRESSION: 1. No evidence of pulmonary embolus. 2. Findings consistent with a mild left basilar pneumonia, consider aspiration. There is also mild evidence of a likely infectious bronchiolitis or possibly changes of aspiration in the left lung as well. 3. Borderline sized prevascular lymph node that could be reactive but metastatic disease is not excluded. Correlation with any old imaging or short-term follow-up would be useful. Assessment and Plan - Diagnosis (1) Acute on chronic respiratory failure with hypoxia and hypercapnia Is this a current diagnosis for this admission?: Yes Plan: His CO2 was paradoxically worsening on BiPAP,, but he finally started to show signs of improvement as the day wore on. We will continue BiPAP and will reassess periodically to see if he can come off of it and start taking p.o. (2) Metabolic encephalopathy Is this a current diagnosis for this admission?: Yes Plan: Due to his respiratory acidosis. We will continue BiPAP. Does seem to be improving, but slowly. - Time Time Spent with patient: 15-24 minutes
[2019-08-16 22:18] LABS: APPEARANCE,URINE CLEAR; BILIRUBIN,URINE NEGATIVE (NEGATIVE); COLOR,URINE YELLOW; GLUCOSE, URINE NEGATIVE (NEGATIVE); KETONES,URINE 20 mg/dL (NEGATIVE); LEUKOCYTE ESTERASE,URINE NEGATIVE (NEGATIVE); NITRITE,URINE NEGATIVE (NEGATIVE); PROTEIN,URINE 30 mg/dL (NEGATIVE); UROBILINOGEN,URINE NEGATIVE mg/dL (<2.0)
[2019-08-17] MEDS: IPRATROPIUM/ALBUTEROL 0.5-2.5 MG/3 ML AMPUL NEB SCH ×2 (01:55→07:58)
[2019-08-17] MEDS: HEPARIN SOD (PORCINE) 5,000 UNIT/ML 1 ML VIAL SUBCUT SCH (05:56)
[2019-08-17 07:27] LABS: HEMATOCRIT 33.1 % (37.9-51.0); HEMOGLOBIN 10.8 g/dL (13.5-17.0); MEAN CORPUSCULAR HEMOGLOBIN 33.1 pg (27.0-33.4); MEAN CORPUSCULAR HGB CONC 32.5 g/dL (32.0-36.0); MEAN CORPUSCULAR VOLUME 102 fl (80-97); PLATELET COUNT 361 10^3/uL (150-450); RED BLOOD COUNT 3.25 10^6/uL (4.35-5.55); WHITE BLOOD COUNT 19.9 10^3/uL (4.0-10.5)
[2019-08-17 07:43] LABS: ANION GAP 6 (5-19); BLOOD UREA NITROGEN 35 mg/dL (7-20); CALCIUM 8.8 mg/dL (8.4-10.2); CARBON DIOXIDE 36 mmol/L (22-30); CHLORIDE 98 mmol/L (98-107); GLUCOSE 108 mg/dL (75-110); POTASSIUM 5.5 mmol/L (3.6-5.0)
[2019-08-17] MEDS: BUDESONIDE NEB 0.5 MG/2 ML AMPUL NEB SCH (07:58)
[2019-08-17 08:08] LABS: ABSOLUTE LYMPHOCYTES# (MANUAL) 0.6 10^3/uL (0.5-4.7); ABSOLUTE MONOCYTES # (MANUAL) 2.4 10^3/uL (0.1-1.4); BAND NEUTROPHILS % (MANUAL) 5 % (3-5); BASOPHILS % (MANUAL) 0 % (0-2); EOSINOPHILS % (MANUAL) 0 % (0-6); LYMPHOCYTES % (MANUAL) 3 % (13-45); MONOCYTES % (MANUAL) 12 % (3-13); SEGMENTED NEUTROPHILS % (MAN) 80 % (42-78); TOTAL CELLS COUNTED 100
[2019-08-17 08:10] LABS: ANISOCYTOSIS SLIGHT; PLATELET COMMENT ADEQUATE; TOXIC VACUOLATION PRESENT
[2019-08-17 09:33] VITALS: BP 142/85
[2019-08-17] MEDS: FAMOTIDINE INJ/PF 20 MG/2 ML SDV IV SCH (10:32)
[2019-08-17] MEDS: GUAIFENESIN 600 MG TABLET.SA PO SCH (10:32)
[2019-08-17] MEDS: DOXYCYCLINE HYCLATE 100 MG in DEXTROSE 5%-WATER 250 ML IV SCH (10:32)
[2019-08-17] MEDS: MINERAL OIL/PETROLATUM,WHITE CREAM 114 GM TP SCH (10:33)
[2019-08-17] MEDS ORDERED: MORPHINE SULFATE 10 MG/ML INJ IV PRN (11:59)
[2019-08-17] MEDS ORDERED: LORAZEPAM INJ 2 MG/1 ML VIAL IV PRN (11:59)
[2019-08-17] MEDS ORDERED: IPRATROPIUM/ALBUTEROL 0.5-2.5 MG/3 ML AMPUL NEB PRN (13:38)
--- NOTE | 2019-08-17 19:20 | Death Summary ---
Summary Date : 08/17/19 Time of :: 17:33 Autopsy: No Resuscitation Status: Comfort Measures Only - Final Diagnosis (1) Acute on chronic respiratory failure with hypoxia and hypercapnia Is this a current diagnosis for this admission?: Yes (2) Metabolic encephalopathy Is this a current diagnosis for this admission?: Yes Hospital Course:: He did not improve on BiPAP. He had one brief period yesterday evening where he woke up and was able to interact a little bit, but he continued to deteriorate and his PCO2 continued to remain substantially elevated. His family ultimately decided to make him comfort measures only. Comfort measures were instituted and he this afternoon at 1733 hrs.
== END 2019-08-17 19:00 | disposition left against medical advice (07) | DRG 871 ==
LOC: ER 18:19 → EH 23:38 → 4W 08-16 00:55
PROVIDERS: ADMIT Hospitalist; ATTEND Hospitalist
PROC: 5A09457 Assistance with Respiratory Ventilation, 24-96 Consecutive Hours, Continuous Positive Airway Pressure (ICD-10-PCS; principal; 2019-08-15)
DX: A41.9 Sepsis, unspecified organism (principal); J96.21 Acute and chronic respiratory failure with hypoxia; J18.9 Pneumonia, unspecified organism; G93.41 Metabolic encephalopathy; J96.22 Acute and chronic respiratory failure with hypercapnia; C34.91 Malignant neoplasm of unspecified part of right bronchus or lung; D72.829 Elevated white blood cell count, unspecified; R73.9 Hyperglycemia, unspecified; J44.9 Chronic obstructive pulmonary disease, unspecified; I11.0 Hypertensive heart disease with heart failure; I50.9 Heart failure, unspecified; Z66 Do not resuscitate; Z99.81 Dependence on supplemental oxygen; Z79.2 Long term (current) use of antibiotics; Z79.51 Long term (current) use of inhaled steroids; Z79.52 Long term (current) use of systemic steroids; Z79.899 Other long term (current) drug therapy; Z90.2 Acquired absence of lung [part of]
CPT/HCPCS: 36415; 71045; 71275; 80048; 80053; 81001; 82550; 82553; 82803; 83605; 83735; 83880; 84484; 85025; 87040; 93005; 93010; 94640; 94660; 94762; 96361; 96365; 96367; 96375; 99291; J0696; J1644; J2060; J2270; J2405; J3475; J3490; J7030; J7040; J7060; J7620; S0028